=== PATIENT | female | born 1995 | race Caucasian/White ===

== ENCOUNTER → 2021-04-08 | Outpatient (CLI) | payer BC ==
--- NOTE | 2021-04-08 16:48 | RAD ---
EXAM: Pelvic ultrasound HISTORY: Polycystic ovarian syndrome, irregular periods. COMPARISON: None. FINDINGS: Sonographic evaluation of the pelvis was performed transabdominally. The uterus is anteverted and measures 8.5 x 4.6 x 2.4 cm. The endometrial stripe measures 10 mm. No m asses are identified. There is no significant free fluid. The right ovary measures 3.9 x 2.1 x 2.0 cm. The left ovary measures 3.6 x 3.0 x 2.1 cm. A few small peripheral follicles are seen bilaterally. There is normal Doppler flow bilaterally. There are no tammy picious lesions. IMPRESSION: 1. A few small peripheral follicles are noted in both ovaries. This appearance is nonspecific. It is compatible with but not classic for polycystic ovarian syndrome. Correlate with other clinical data. Electronically signed by: Cady Ricardo MD (04/08/2021 4:46 PM) [id number]
== END ==
LOC: US 14:57
PROVIDERS: ATTEND Family Medicine
DX: N92.6 Irregular menstruation, unspecified (principal)
CPT/HCPCS: 76856

== ENCOUNTER → 2021-10-18 | Outpatient (CLI) | payer BC ==
[2021-10-19 04:07] LABS: ESTRADIOL LEVEL 43.5 pg/mL (.); PROGESTERONE <0.1 ng/mL (.)
== END ==
LOC: LAB 14:27
PROVIDERS: ATTEND Family Medicine
DX: N92.6 Irregular menstruation, unspecified (principal); E34.9 Endocrine disorder, unspecified
CPT/HCPCS: 36415; 82670; 84144

== ENCOUNTER → 2021-10-20 | Outpatient (CLI) | payer BC ==
[2021-10-21 05:12] LABS: ESTRADIOL LEVEL 63.4 pg/mL (.); PROGESTERONE 0.1 ng/mL (.)
== END ==
LOC: LAB 13:41
PROVIDERS: ATTEND Family Medicine
DX: N72 Inflammatory disease of cervix uteri (principal); E34.9 Endocrine disorder, unspecified; N92.6 Irregular menstruation, unspecified
CPT/HCPCS: 36415; 82670; 84144

== ENCOUNTER → 2021-10-22 | Outpatient (CLI) | payer BC ==
[2021-10-23 01:07] LABS: PROGESTERONE 0.2 ng/mL (.)
== END ==
LOC: LAB 13:47
PROVIDERS: ATTEND Family Medicine
DX: N92.6 Irregular menstruation, unspecified (principal); E34.9 Endocrine disorder, unspecified; N72 Inflammatory disease of cervix uteri
CPT/HCPCS: 36415; 82670; 84144

== ENCOUNTER → 2021-10-25 | Outpatient (CLI) | payer BC ==
[2021-10-26 05:12] LABS: ESTRADIOL LEVEL 41.6 pg/mL (.); PROGESTERONE 1.9 ng/mL (.)
== END ==
LOC: LAB 13:36
PROVIDERS: ATTEND Family Medicine
DX: N72 Inflammatory disease of cervix uteri (principal); E34.9 Endocrine disorder, unspecified; N92.6 Irregular menstruation, unspecified
CPT/HCPCS: 36415; 82670; 84144

== ENCOUNTER → 2021-10-27 | Outpatient (CLI) | payer BC ==
[2021-10-28 19:08] LABS: ESTRADIOL LEVEL 49.7 pg/mL (.); PROGESTERONE 7.5 ng/mL (.)
== END ==
LOC: LAB 13:36
PROVIDERS: ATTEND Family Medicine
DX: N72 Inflammatory disease of cervix uteri (principal); E34.9 Endocrine disorder, unspecified; N92.6 Irregular menstruation, unspecified
CPT/HCPCS: 36415; 82670; 84144

== ENCOUNTER → 2021-10-31 | Outpatient (CLI) | payer BC ==
[2021-11-01 15:06] LABS: FREE T4 0.8 ng/dL (0.76-1.46); THYROID STIM HORMONE (TSH) 1.625 uIU/mL (0.358-3.740)
[2021-11-01 18:07] LABS: T3 TOTAL 98 ng/dL (71-180)
[2021-11-01 19:08] LABS: FSH 3.6 mIU/mL (.); LUTEINIZING HORMONE 7.1 mIU/mL (.); PROLACTIN 17.2 ng/mL (4.8-23.3); THYROXINE 6.5 ug/dL (4.5-12.0)
== END ==
LOC: LAB 16:15
PROVIDERS: ATTEND Family Medicine
DX: E34.9 Endocrine disorder, unspecified (principal); N72 Inflammatory disease of cervix uteri; N92.6 Irregular menstruation, unspecified
CPT/HCPCS: 36415; 82626; 83001; 83002; 84146; 84270; 84402; 84403; 84436; 84439; 84443; 84480